=== PATIENT | female | born 1940 | race Caucasian/White ===

== ENCOUNTER → 2018-07-04 | Outpatient (CLI) | payer MEDICARE ==
[~2018-07-04] MED LIST: CITA10TA PO; TRAM-21 PO
--- NOTE | 2018-07-04 12:43 | Diagnostic Imaging Report ---
EXAMINATION: Lumbar spine. INDICATION: Back pain. TECHNIQUE: Three views were obtained. FINDINGS: There are no prior lumbar spine examinations available for comparison. The lateral view does show a 40-50% compression deformity of the superior endplate of L1. In reviewing the CT chest exam performed on 05/21/2015 I do feel that this finding was present. Consequently this injury is felt to be long-standing in nature. The lateral view also shows a mild (10%or less) compression deformity of the superior endplate of L5. This finding was not clearly evident on the previous CT of the abdomen/pelvis exam of 04/25/2012. I suspect that this injury may well be long-standing in nature. However, clinical concern regarding an acute or subacute abnormality in this area persists, then MRI would be recommended for additional study. The other vertebral body heights are within normal limits. The intervertebral spaces are fairly well-maintained. There is no acute fracture identified. There is no sign of a paraspinal mass. There is mild symmetrical sclerosis of the sacroiliac joints. IMPRESSION: 1. There is no acute bony abnormality identified with certainty. The mild compression fracture of L5 is of indeterminate age, although probably chronic in nature. Additional considerations as above. 2. The compression fracture of L1 appears to be long-standing in nature. Dictated by: Dictated on workstation # [id number]
== END ==
LOC: RAD 10:47
PROVIDERS: ATTEND Nurse Practitioner Family
DX: S32.010A Wedge compression fracture of first lumbar vertebra, initial encounter for closed fracture (principal); S32.050A Wedge compression fracture of fifth lumbar vertebra, initial encounter for closed fracture; M53.3 Sacrococcygeal disorders, not elsewhere classified
CPT/HCPCS: 72100

== ENCOUNTER → 2018-10-29 | Outpatient (CLI) | payer MEDICARE ==
--- NOTE | 2018-10-29 15:19 | Diagnostic Imaging Report ---
INDICATION: Neck pain. TIME OF EXAM: 12:48 p.m. FINDINGS: Three views of the cervical spine were obtained. Odontoid appears intact. Curvature is normal. There is minimal retrolisthesis of C3 on C4. There is marked demineralization throughout the cervical spine. Multilevel degenerative disc disease is seen with variable disc space narrowing and marginal spurring. Prevertebral tissues are normal. No fractures are seen. Calcifications in the left neck on the frontal view are likely from the carotid artery. IMPRESSION: Cervical spondylosis. No acute bony abnormality is detected. Dictated by: Dictated on workstation # [id number]
--- NOTE | 2018-10-29 18:53 | Diagnostic Imaging Report ---
INDICATION: Routine screening. Comparison is made with prior mammogram from 06/02/2015 and 05/19/2014. 2-D and 3-D unilateral left screening mammography was performed with CAD. Current study was also evaluated with a Computer Aided Detection (CAD) system. The left breast is heterogeneously dense, limiting the sensitivity of mammography. Left breast benign calcifications are again noted. There is a focal density in the mid left breast at the nipple line on MLO view. No correlate on the CC view is seen. Additional views are recommended. No other abnormality is seen. No suspicious calcifications are seen. Left axilla is unremarkable. IMPRESSION: Left breast density. Additional views including spot compression MLO and 90 degree lateral views are recommended for further evaluation. ACR BI-RADS Category 0: Incomplete. (Need additional imaging evaluation). Result letter will be mailed to the patient. Note: At least 10% of breast cancer is not imaged by mammography. Dictated by: Dictated on workstation # [id number]
== END ==
LOC: RAD 12:23
PROVIDERS: ATTEND Nurse Practitioner Family
DX: Z12.31 Encounter for screening mammogram for malignant neoplasm of breast (principal); R92.8 Other abnormal and inconclusive findings on diagnostic imaging of breast; M47.812 Spondylosis without myelopathy or radiculopathy, cervical region
CPT/HCPCS: 72040

== ENCOUNTER → 2018-11-01 | Outpatient (CLI) | payer MEDICARE ==
--- NOTE | 2018-11-01 13:17 | Diagnostic Imaging Report ---
INDICATION: Left breast density. Patient presents for additional views. CORRELATION is made with prior mammogram of 10/29/2018. Unilateral left 2-D and 3-D diagnostic mammography was performed including spot compression MLO and conventional 90 degree lateral views. Density noted in the central posterior left breast on prior imaging is no longer visualized. This most likely represented superimposed tissue. No mass or suspicious calcifications are seen. IMPRESSION: BI-RADS category 1. Additional views fail to demonstrate a discrete mass. The patient may return to routine annual screening mammography Dictated by: Dictated on workstation # [id number]
== END ==
LOC: RAD 12:55
PROVIDERS: ATTEND Nurse Practitioner Family
DX: R92.2 Inconclusive mammogram (principal)
CPT/HCPCS: 76641

== ENCOUNTER 2019-05-15 10:57 | Outpatient (RCR) | payer MEDICARE | END 2019-05-15 11:54 | disposition home or self-care (01) | PROVIDERS: ATTEND Nurse Practitioner Family | DX: M54.5 Low back pain (principal); Z87.81 Personal history of (healed) traumatic fracture; Z72.0 Tobacco use ==

== ENCOUNTER → 2019-11-28 | Outpatient (CLI) | payer MEDICARE ==
[~2019-11-28] MED LIST changes: +CATHETER FLUSH 10 ML SYR IV PRN; +HOLD METFORMIN - RECEIVED CONTRAST 20 ML VIAL IV SCH; +IOHEXOL 350 MG/ML 100 ML (OMNIPAQUE 350) VIAL IV ONE; +NS 100 ML (IVPB) BAG IV ONE
--- NOTE | 2019-11-28 10:59 | Diagnostic Imaging Report ---
CT CHEST W WO TECHNIQUE: Multiple contiguous axial images were obtained through the chest without and with the use of intravenous contrast. All CT scans use one or more of the following dose optimizing techniques: automated exposure control, MA and/or KvP adjustment based on a patient size and exam type, or iterative reconstruction. INDICATION: Pulmonary nodule follow-up. COMPARISON: CT chest of 05/21/2015 FINDINGS: Lungs and airway: No endoluminal nodule within the trachea. In the right upper lobe at the site of previous groundglass nodule, there is now irregular spiculated nodule measuring 1.3 cm which has an associated pleural tag. There are a few groundglass nodules within the bilateral lung apices measuring approximately 1 to 1.5 cm. A solid nodule has developed within the left upper lobe measuring 1.4 x 1.3 cm. Pleura: No pleural effusion or pneumothorax. Heart and mediastinum: No supraclavicular or axillary lymphadenopathy. No mediastinal, discrete hilar or juxtaphrenic lymphadenopathy. Heart is normal in size without pericardial effusion. Coronary artery calcifications are unchanged. Normal caliber thoracic aorta. Upper abdomen: Stable cysts within the left hepatic lobe that require no dedicated follow-up. Atherosclerotic aorta. Small sliding-type hiatal hernia is stable. Musculoskeletal: Chronic superior endplate compression at L1. No concerning focal osseous lesions. IMPRESSION: 1. New left upper lobe solid 1.4 cm pulmonary nodule is highly concerning for primary lung cancer or metastases from contralateral lung cancer. PET/CT is advised for further assessment. 2. Right upper lobe groundglass nodule has turned into a spiculated nodule with pleural tag suspicious for an additional site of lung cancer. Due to the incomplete solid nature, this lesion may not be hypermetabolic on PET/CT. 3. No intrathoracic lymphadenopathy or features of skeletal metastases in the chest. Dictated by: Dictated on workstation # [id number]
== END ==
LOC: RAD 08:16
PROVIDERS: ATTEND Family Medicine
DX: J44.9 Chronic obstructive pulmonary disease, unspecified (principal); R91.8 Other nonspecific abnormal finding of lung field
CPT/HCPCS: 71270

== ENCOUNTER → 2019-12-09 | Outpatient (CLI) | payer MEDICARE ==
[~2019-12-09] MED LIST changes: -CATHETER FLUSH 10 ML SYR IV PRN; -HOLD METFORMIN - RECEIVED CONTRAST 20 ML VIAL IV SCH; -IOHEXOL 350 MG/ML 100 ML (OMNIPAQUE 350) VIAL IV ONE; -NS 100 ML (IVPB) BAG IV ONE
--- NOTE | 2019-12-09 13:22 | Diagnostic Imaging Report ---
INDICATION: Right upper lobe and left upper lobe lung mass. TECHNIQUE: Serum blood glucose level at the time of injection is 130 mg/dL. Patient was administered 14.9 mCi F-18 FDG intravenously in the left antecubital location and PET imaging was performed from the top of the skull to mid thighs. Noncontrast CT was also performed for attenuation correction and anatomic correlation. COMPARISON: No prior PET/CT study is available for comparison. Comparison is made with recent CT chest study from 11/28/2019. FINDINGS: There is symmetric activity throughout the brain. Soft tissues of the neck are unremarkable. Previously noted density in the right upper lobe with pleural tag does not show metabolic activity. The left upper lobe lobulated mass does appear to be hypermetabolic with SUV max of approximately 5. No mediastinal or hilar hypermetabolism is seen. The abdomen and pelvis demonstrate physiologic activity throughout the GI and tracts. No suspicious hypermetabolic focus is detected. Conventional CT images demonstrate hepatic cysts. There is diverticulosis of the sigmoid but no acute diverticulitis. IMPRESSION: 1. The lobulated nodule in the left upper lobe noted on recent CT is hypermetabolic and suspicious for small lung neoplasm. No mediastinal or hilar hypermetabolism is identified. The irregular density in the right upper lobe with pleural tag does not appear to be hypermetabolic but continued follow-up would be recommended of this lesion. Dictated by: Dictated on workstation # [id number]
== END ==
LOC: RAD 08:15
PROVIDERS: ATTEND Family Medicine
DX: J98.4 Other disorders of lung (principal); R91.1 Solitary pulmonary nodule; R91.8 Other nonspecific abnormal finding of lung field

== ENCOUNTER 2019-12-22 09:01 | Outpatient (CLI) | payer MEDICARE ==
[~2019-12-22] VITALS: Ht 160 cm; Wt 59.3 kg
[2019-12-22] VITALS (15 sets, daily range): BP systolic 122–159; BP diastolic 45–61
--- NOTE | 2019-12-22 09:06 | NUR ---
PT HAS HX OF RIGHT MASTECTOMY WITH LYMPH NODE DISSECTION. PINK LIMB ALERT BAND APPLIED TO RIGHT ARM.
[2019-12-22] MEDS ORDERED: NS IV 1000 ML 1,000 ML IV STA (09:37)
[2019-12-22 09:42] LABS: HEMOGLOBIN 13.9 G/DL (11.5-16.0); MEAN PLATELET VOLUME 9.7 FL (7.4-10.4); RED CELL DISTRIBUTION WIDTH 14.9 % (10.0-14.5); WHITE BLOOD COUNT 8.6 10^3/uL (4.3-11.0)
[2019-12-22] MEDS ORDERED: LIDOCAINE 1% INJ 20 ML 20 ML VIAL INJ ONE (09:45)
[2019-12-22] MEDS ORDERED: MIDAZOLAM 2 MG/2 ML (VERSED) VIAL IVP ONE (09:45)
[2019-12-22] MEDS ORDERED: fentaNYL INJECTION 100 MCG/2 ML AMP IVP ONE (09:45)
[2019-12-22] MEDS ORDERED: MAGN250T13 PO (09:50)
[2019-12-22] MEDS ORDERED: LIDOCAINE 1% INJ 20 ML 20 ML VIAL ONE (09:50)
[2019-12-22] MEDS ORDERED: POTA10CA43 PO (09:50)
[2019-12-22] MEDS ORDERED: MIDAZOLAM 2 MG/2 ML (VERSED) VIAL ONE (09:50)
[2019-12-22] MEDS ORDERED: NS IV 1000 ML 1,000 ML ONE (09:50)
[2019-12-22] MEDS ORDERED: IBUP1TAB9 PO (09:50)
[2019-12-22] MEDS ORDERED: HYDR25TA4 PO (09:50)
[2019-12-22] MEDS ORDERED: fentaNYL INJECTION 100 MCG/2 ML AMP ONE (09:50)
[2019-12-22 09:55] LABS: INR 0.9 (0.8-1.4); PROTHROMBIN TIME PATIENT 12.8 SEC (12.2-14.7)
--- NOTE | 2019-12-22 11:00 | NUR ---
TO AMB SURG FROM RADIOLOGY PER CART. ALERT, REPORTS LEFT CHEST DISCOMFORT 1, RESPIRATIONS EVEN, UNLABORED WITH SAO2 98% ON ROOM AIR. GAUZE/OPSITE DSG D/I TO LEFT CHEST PROCEDURE SITE. PO FLUIDS PROVIDED.
[2019-12-22] MEDS ORDERED: HYDROcodone/APAP 5 MG/325 MG (LORTAB) TAB PO PRN (11:15)
--- NOTE | 2019-12-22 11:19 | Pre-Op Note & Conscious Sedat ---
Pre-Operative Progress Note H&P Reviewed The H&P was reviewed, patient examined and no changes noted. Date H&P Reviewed: Dec 22, 2019 Time H&P Reviewed: 09:00 Pre-Op Diagnosis: Lung mass Conscious Sedation Pre-Proced Time 09:00 ASA Score 2 For ASA 3 and 4: Consider anesthesia and medical clearance. Also, for patients with a history of failed moderate sedation consider anesthesia. Airway Lungs Heart ASA score ASA 1: a normal healthy patient ASA 2: a patient with a mild systemic disease (mid diabetes, controlled hypertension, obesity ASA 3: a patient with a severe systemic disease that limits activity (angina, COPD, prior Myocardial infarction) ASA 4: a patient with an incapacitating disease that is a constant threat to life (CHF, renal failure) ASA 5: a moribund patient not expected to survive 24 hrs. (ruptured aneurysm) ASA 6: a declared brain- patient whose organs are being harvested. For emergent operations, add the letter E after the classification Mallampati Classification Grade 2 Sedation Plan Analgesia, Amnesia, Plan communicated to team members, Discussed options with patient/fam, Discussed risks with patient/fam The patient is an appropriate candidate to undergo the planned procedure, sedation, and anesthesia. The patient immediately re-assessed prior to indication. MAG JACOB MD Dec 22, 2019 11:19
--- NOTE | 2019-12-22 11:29 | Diagnostic Imaging Report ---
INDICATION: Left lung mass. Patient presents for CT-guided biopsy. TECHNIQUE: All CT scans use one or more of the following dose optimizing techniques: automated exposure control, MA and/or KvP adjustment based on a patient size and exam type, or iterative reconstruction. FINDINGS: After informed written consent was obtained, patient was brought to CT suite, placed on table in the supine position. Axial imaging through the chest was performed to evaluate appropriate entry site. Left lower anterior chest was then prepped and draped in usual sterile fashion. Procedure was performed utilizing conscious sedation with radiology nursing and constant patient monitoring. Patient was given a total of 25 mcg of fentanyl intravenously. Procedure time was 13 minutes. 20-gauge coaxial Temno needle was advanced and placed with its tip along the margin of the nodule in the left upper lobe. Three core biopsies were obtained. Next, the needle was repositioned and additional two to three core biopsies were obtained. Needle was withdrawn during administration of a blood patch. Follow-up imaging shows a small amount of airspace infiltrate adjacent to the lesion, likely representing a small amount of hemorrhage. There is a very small left basilar pneumothorax. Patient tolerated the procedure well and left the department in stable condition. IMPRESSION: CT-guided core biopsy of left upper lobe nodule, utilizing conscious sedation. Pathology results are currently pending. Dictated by: Dictated on workstation # [id number]
--- NOTE | 2019-12-22 12:41 | Diagnostic Imaging Report ---
INDICATION: Left lung biopsy. TIME OF EXAM: 12:32 PM Correlation is made with prior chest from 04/04/2019. Left basilar nodular density is noted consistent with the recently biopsied lesion. No pneumothorax is identified status post biopsy. No effusion or hemothorax. IMPRESSION: No evidence of pneumothorax, status post left lung nodule biopsy. Dictated by: Dictated on workstation # [id number]
--- NOTE | 2019-12-22 13:00 | NUR ---
RECEIVED CALL FROM DAVE MAHAJAN RN, STATING POST PROCEDURE X-RAY SHOWS NO PNUEMOTHORAX OR EFFUSION. OK TO BE DISMISSED. HAS BEEN UP TO BR WITH ASSIST, GAIT STEADY, DENIES COMPLAINTS. STATES SHE IS READY FOR DISMISSAL.
== END 2019-12-22 13:00 | disposition home or self-care (01) ==
LOC: SDC 09:01
PROVIDERS: ATTEND Family Medicine
DX: C34.12 Malignant neoplasm of upper lobe, left bronchus or lung (principal)
CPT/HCPCS: 36415; 71045; 77012; 85027; 85610; 85730; 88305; 88341; 88342; 88344

== ENCOUNTER → 2020-04-01 | Outpatient (RCR) | payer MEDICARE ==
[~2020-04-01] MED LIST changes: +HYDR25TA4 PO; +IBUP1TAB9 PO; +MAGN250T13 PO; +POTA10CA43 PO
[2020-04-01 13:36] LABS: BASOPHILS % (AUTO) 0 % (0-10); EOSINOPHILS # (AUTO) 0.1 10^3/uL (0.0-0.3); EOSINOPHILS % (AUTO) 2 % (0-10); HEMATOCRIT 39 % (35-52); HEMOGLOBIN 12.9 G/DL (11.5-16.0); LYMPHOCYTES # (AUTO) 2.1 X 10^3 (1.0-4.0); LYMPHOCYTES % (AUTO) 34 % (12-44); MEAN CORPUSCULAR HEMOGLOBIN 30 PG (25-34); MEAN CORPUSCULAR HGB CONC 33 G/DL (32-36); MEAN CORPUSCULAR VOLUME 89 FL (80-99); MEAN PLATELET VOLUME 9.9 FL (7.4-10.4); MONOCYTES # (AUTO) 0.7 X 10^3 (0.0-1.0); MONOCYTES % (AUTO) 10 % (0-12); NEUTROPHILS # (AUTO) 3.4 X 10^3 (1.8-7.8); NEUTROPHILS % (AUTO) 54 % (42-75); PLATELET COUNT 189 10^3/uL (130-400); WHITE BLOOD COUNT 6.3 10^3/uL (4.3-11.0)
[2020-04-01 13:59] LABS: ALANINE AMINOTRANSFERASE 18 U/L (0-55); ALBUMIN 3.6 GM/DL (3.2-4.5); ALKALINE PHOSPHATASE 89 U/L (40-136); BILIRUBIN,TOTAL 0.4 MG/DL (0.1-1.0); BUN/CREATININE RATIO 23; CARBON DIOXIDE 26 MMOL/L (21-32); CHLORIDE 105 MMOL/L (98-107); CREATININE SERUM 0.75 MG/DL (0.60-1.30); GFR ESTIMATED > 60; GLUCOSE 86 MG/DL (70-105); POTASSIUM 3.5 MMOL/L (3.6-5.0); SODIUM 140 MMOL/L (135-145); TOTAL PROTEIN 6.7 GM/DL (6.4-8.2)
== END | disposition home or self-care (01) ==
LOC: ONC 01-02 08:27
PROVIDERS: ATTEND Internal Medicine Hematology & Oncology
DX: C34.12 Malignant neoplasm of upper lobe, left bronchus or lung (principal); Z85.3 Personal history of malignant neoplasm of breast; Z90.11 Acquired absence of right breast and nipple; K57.30 Diverticulosis of large intestine without perforation or abscess without bleeding; F17.210 Nicotine dependence, cigarettes, uncomplicated; I10 Essential (primary) hypertension; Z79.899 Other long term (current) drug therapy; Z80.3 Family history of malignant neoplasm of breast; Z80.1 Family history of malignant neoplasm of trachea, bronchus and lung; Z80.0 Family history of malignant neoplasm of digestive organs
CPT/HCPCS: 80053; 82378; 85025; 99204; 99213; 99214

== ENCOUNTER → 2020-06-02 | Outpatient (CLI) | payer MEDICARE ==
[2020-06-02 10:16] LABS: BUN/CREATININE RATIO 25; CREATININE SERUM 0.73 MG/DL (0.60-1.30); GFR ESTIMATED > 60
[2020-06-02 10:23] LABS: ALBUMIN 3.8 GM/DL (3.2-4.5)
[2020-06-02 10:24] LABS: CHLORIDE 108 MMOL/L (98-107); POTASSIUM 3.9 MMOL/L (3.6-5.0); SODIUM 144 MMOL/L (135-145)
[2020-06-02 10:26] LABS: GLUCOSE 107 MG/DL (70-105); TOTAL PROTEIN 6.7 GM/DL (6.4-8.2)
[2020-06-02 10:27] LABS: CARBON DIOXIDE 24 MMOL/L (21-32)
[2020-06-02 10:28] LABS: BILIRUBIN,TOTAL 0.7 MG/DL (0.1-1.0)
[2020-06-02 10:29] LABS: ALKALINE PHOSPHATASE 76 U/L (40-136)
[2020-06-02 10:32] LABS: ALANINE AMINOTRANSFERASE 14 U/L (0-55)
== END ==
LOC: LAB 09:11
PROVIDERS: ATTEND Nurse Practitioner Family
DX: E87.6 Hypokalemia (principal)
CPT/HCPCS: 36415; 80053

== ENCOUNTER → 2020-06-02 | Outpatient (CLI) | payer MEDICARE ==
[~2020-06-02] MED LIST changes: +CATHETER FLUSH 10 ML SYR IV PRN; +HOLD METFORMIN - RECEIVED CONTRAST 20 ML VIAL IV SCH; +IOHEXOL 350 MG/ML 100 ML (OMNIPAQUE 350) VIAL IV ONE; +NS 100 ML (IVPB) BAG IV ONE
[2020-06-02 10:00] LABS: CREATININE SERUM 0.73 MG/DL (0.60-1.30); GFR ESTIMATED > 60
[2020-06-02 10:01] LABS: BUN/CREATININE RATIO 25
--- NOTE | 2020-06-02 12:29 | Diagnostic Imaging Report ---
PROCEDURE: CT chest with contrast only. TECHNIQUE: Multiple contiguous axial images were obtained through the chest after administration of intravenous contrast. Auto Exposure Controls were utilized during the CT exam to meet ALARA standards for radiation dose reduction. INDICATION: Non-small cell lung carcinoma. COMPARISON: Prior CT chest from 11/28/2019. FINDINGS: No axillary lymphadenopathy is seen. There are multiple surgical clips in the right axilla. No mediastinal or hilar lymphadenopathy is seen. No pericardial or pleural fluid is detected. A spiculated density with a pleural tag in the right upper lobe is again noted measuring 12 mm compared with 14 mm on the prior. Groundglass opacity just lateral to this in the right upper lobe appears stable. There are some additional groundglass opacities in the medial right upper lobe and medial left upper lobe, similar to the prior exam. The solid, spiculated nodule in the left upper lobe measures 10 mm x 7 mm compared with 12 mm x 11 mm on the prior exam. Minimal groundglass density in the right lower lobe is stable. No new mass is seen. The upper abdomen again demonstrates multiple hepatic low-density lesions suggestive of cysts. No adrenal mass is identified. IMPRESSION: Overall slight decrease in size of the bilateral pulmonary opacities when compared with the examination from 11/28/2019. No thoracic lymphadenopathy is detected. Dictated by: Dictated on workstation # [id number]
== END ==
LOC: RAD 10:15
PROVIDERS: ATTEND Nurse Practitioner Family
DX: C34.12 Malignant neoplasm of upper lobe, left bronchus or lung (principal); R91.8 Other nonspecific abnormal finding of lung field
CPT/HCPCS: 71260; 82565; 84520

== ENCOUNTER → 2020-11-22 | Outpatient (CLI) | payer MEDICARE ==
[2020-11-22 09:49] LABS: GFR ESTIMATED > 60
[2020-11-22 09:50] LABS: BUN/CREATININE RATIO 21
--- NOTE | 2020-11-22 10:20 | Diagnostic Imaging Report ---
EXAMINATION: CT chest with intravenous contrast. TECHNIQUE: Multiple contiguous axial images were obtained through the chest after the uneventful administration of intravenous contrast. All CT scans use one or more of the following dose optimizing techniques: automated exposure control, MA and/or KvP adjustment based on patient size and exam type or iterative reconstruction. HISTORY: Lung cancer COMPARISON: 06/02/2020 FINDINGS: There is no edema or pneumonia. No pleural effusion. No pneumothorax. Lingular nodule measuring 7 x 5 mm previously measured 9 x 7 mm. The right upper lobe nodules are seen. The largest measures 10 x 7 mm, previously 12 x 9 mm. There is however a new 7 mm right upper lobe nodule anteriorly. There is been right axillary lymph node dissection. There is no mediastinal lymphadenopathy. Heart size is normal. There are mild coronary artery calcifications. No pericardial effusion. Aorta is normal in caliber. Limited views of the upper abdomen show fluid attenuation lesion in the left hemiliver, unchanged. There are no suspicious osseus lesions. L1 compression fracture is unchanged. IMPRESSION: 1. The majority of the pulmonary nodules have improved with one new 7 mm nodule in the right upper lobe anteriorly. Dictated by: Dictated on workstation # [id number]
== END ==
LOC: RAD 08:50
PROVIDERS: ATTEND Nurse Practitioner Family
DX: C34.12 Malignant neoplasm of upper lobe, left bronchus or lung (principal); R91.8 Other nonspecific abnormal finding of lung field
CPT/HCPCS: 36415; 71260; 82565; 84520

== ENCOUNTER 2020-12-02 14:52 | Outpatient (RCR) | payer MEDICARE ==
[2020-11-25 14:32] LABS: BASOPHILS % (AUTO) 1 % (0-10); EOSINOPHILS # (AUTO) 0.1 10^3/uL (0.0-0.3); EOSINOPHILS % (AUTO) 1 % (0-10); HEMATOCRIT 40 % (35-52); HEMOGLOBIN 13.2 g/dL (11.5-16.0); LYMPHOCYTES # (AUTO) 2.1 10^3/uL (1.0-4.0); LYMPHOCYTES % (AUTO) 30 % (12-44); MEAN CORPUSCULAR HEMOGLOBIN 30 pg (25-34); MEAN CORPUSCULAR HGB CONC 33 g/dL (32-36); MEAN CORPUSCULAR VOLUME 91 fL (80-99); MONOCYTES # (AUTO) 0.5 10^3/uL (0.0-1.0); MONOCYTES % (AUTO) 7 % (0-12); NEUTROPHILS # (AUTO) 4.3 10^3/uL (1.8-7.8); NEUTROPHILS % (AUTO) 62 % (42-75); PLATELET COUNT 198 10^3/uL (130-400)
[2020-11-25 14:53] LABS: ALANINE AMINOTRANSFERASE 13 U/L (0-55); ALBUMIN 3.5 GM/DL (3.2-4.5); ALKALINE PHOSPHATASE 83 U/L (40-136); BILIRUBIN,TOTAL 0.5 MG/DL (0.1-1.0); BUN/CREATININE RATIO 20; CALCIUM 8.8 MG/DL (8.5-10.1); CARBON DIOXIDE 29 MMOL/L (21-32); CHLORIDE 102 MMOL/L (98-107); GFR ESTIMATED > 60; GLUCOSE 166 MG/DL (70-105); POTASSIUM 3.2 MMOL/L (3.6-5.0); SODIUM 135 MMOL/L (135-145); TOTAL PROTEIN 6.4 GM/DL (6.4-8.2)
[~2020-12-02 14:52] MED LIST changes: -CATHETER FLUSH 10 ML SYR IV PRN; -HOLD METFORMIN - RECEIVED CONTRAST 20 ML VIAL IV SCH; -IOHEXOL 350 MG/ML 100 ML (OMNIPAQUE 350) VIAL IV ONE; -NS 100 ML (IVPB) BAG IV ONE
== END 2021-02-23 | disposition home or self-care (01) ==
LOC: ONC 14:52
PROVIDERS: ATTEND Internal Medicine Hematology & Oncology
DX: C34.12 Malignant neoplasm of upper lobe, left bronchus or lung (principal); I10 Essential (primary) hypertension; F17.210 Nicotine dependence, cigarettes, uncomplicated; Z92.3 Personal history of irradiation; Z90.11 Acquired absence of right breast and nipple; Z85.3 Personal history of malignant neoplasm of breast
CPT/HCPCS: 80053; 85025; G0463; 99213

== ENCOUNTER → 2021-03-09 | Outpatient (CLI) | payer MEDICARE ==
[~2021-03-09] MED LIST changes: +HOLD METFORMIN - RECEIVED CONTRAST 20 ML VIAL IV SCH
[2021-03-09] MEDS: CATHETER FLUSH 10 ML SYR IV PRN (09:48)
[2021-03-09] MEDS: NS 100 ML (IVPB) BAG IV ONE (09:48)
[2021-03-09] MEDS: IOHEXOL 350 MG/ML 100 ML (OMNIPAQUE 350) VIAL IV ONE (09:48)
--- NOTE | 2021-03-09 10:16 | Diagnostic Imaging Report ---
EXAMINATION: CT chest with intravenous contrast. TECHNIQUE: Multiple contiguous axial images were obtained through the chest after the uneventful administration of intravenous contrast. All CT scans use one or more of the following dose optimizing techniques: automated exposure control, MA and/or KvP adjustment based on patient size and exam type or iterative reconstruction. HISTORY: Lung cancer follow-up. COMPARISON: 11/22/2020 FINDINGS: Thyroid: The thyroid is normal. Mediastinum: Heart size is normal without significant pericardial effusion. Calcifications of the aorta and coronary vessels. Thoracic aorta is normal in caliber. No suspicious lymphadenopathy. Lungs and airways: There are background emphysematous changes of the lungs. There is scarring in the lung apices. Multiple pulmonary nodules are unchanged. The largest in the right upper lobe measures 1.4 x 0.9 cm. Stable 0.8 x 0.9 cm left upper lobe nodule. Patchy groundglass attenuation within the right lower lobe (series 3 image 100). More prominent appearance of a 0.4 cm right lower lobe subpleural pulmonary nodule (series 3 image 117). No pleural effusion or pneumothorax. The airways are normal. Upper abdomen: Stable left hepatic cyst. Stable 1.0 cm enhancing lesion within the pancreatic tail (series 2 image 151). There is a small hiatal hernia. Musculoskeletal: No suspicious osseous lesion or compression fracture. IMPRESSION: 1. Multiple bilateral pulmonary nodules overall are unchanged in size or appearance from 11/22/2020. A 0.4 cm right lower lobe subpleural pulmonary nodule is more prominent appearance on today's exam. 2. Stable 1.0 cm enhancing lesion within the pancreatic tail. Consider further evaluation with dedicated MRI protocol for evaluation of possible primary pancreatic lesion or metastasis. Dictated by: Dictated on workstation # [id number]
== END ==
LOC: RAD 09:14
PROVIDERS: ATTEND Internal Medicine Hematology & Oncology
DX: R91.8 Other nonspecific abnormal finding of lung field (principal); K86.89 Other specified diseases of pancreas; Z85.118 Personal history of other malignant neoplasm of bronchus and lung
CPT/HCPCS: 71260

== ENCOUNTER 2021-03-15 08:54 | Outpatient (RCR) | payer MEDICARE ==
[2021-03-09 09:02] LABS: BASOPHILS # (AUTO) 0.1 10^3/uL (0.0-0.1); BASOPHILS % (AUTO) 1 % (0-10); EOSINOPHILS # (AUTO) 0.1 10^3/uL (0.0-0.3); EOSINOPHILS % (AUTO) 2 % (0-10); HEMATOCRIT 42 % (35-52); HEMOGLOBIN 13.6 g/dL (11.5-16.0); LYMPHOCYTES # (AUTO) 2.1 10^3/uL (1.0-4.0); LYMPHOCYTES % (AUTO) 30 % (12-44); MEAN CORPUSCULAR HEMOGLOBIN 30 pg (25-34); MEAN CORPUSCULAR HGB CONC 33 g/dL (32-36); MEAN CORPUSCULAR VOLUME 91 fL (80-99); MEAN PLATELET VOLUME 9.4 fL (9.0-12.2); MONOCYTES # (AUTO) 0.7 10^3/uL (0.0-1.0); MONOCYTES % (AUTO) 10 % (0-12); NEUTROPHILS # (AUTO) 4.1 10^3/uL (1.8-7.8); NEUTROPHILS % (AUTO) 58 % (42-75); PLATELET COUNT 214 10^3/uL (130-400)
[2021-03-09 09:25] LABS: ALBUMIN 3.8 GM/DL (3.2-4.5); BILIRUBIN,TOTAL 0.7 MG/DL (0.1-1.0); CALCIUM 9.8 MG/DL (8.5-10.1); CREATININE SERUM 0.82 MG/DL (0.60-1.30); POTASSIUM 3.8 MMOL/L (3.6-5.0)
[~2021-03-15 08:54] MED LIST changes: -HOLD METFORMIN - RECEIVED CONTRAST 20 ML VIAL IV SCH
== END 2021-06-07 | disposition home or self-care (01) ==
LOC: ONC 08:54
PROVIDERS: ATTEND Internal Medicine Hematology & Oncology
DX: C34.12 Malignant neoplasm of upper lobe, left bronchus or lung (principal); I10 Essential (primary) hypertension; F17.210 Nicotine dependence, cigarettes, uncomplicated; Z92.3 Personal history of irradiation; Z90.11 Acquired absence of right breast and nipple; Z85.3 Personal history of malignant neoplasm of breast
CPT/HCPCS: 80053; 85025; 99213

== ENCOUNTER → 2021-06-03 | Outpatient (CLI) | payer MEDICARE ==
--- NOTE | 2021-06-03 14:01 | Diagnostic Imaging Report ---
CLINICAL INDICATIONS: Patient with low back pain. Patient went to urgent care for UTI. Patient has known compression fracture above her tailbone. EXAM: X-ray of the lumbar spine, 5 views. COMPARISON: X-ray of the lumbar spine dated 07/04/2018. FINDINGS: Stable chronic compression deformity of the upper endplate of the L5 vertebra. Stable anterior wedge compression fracture deformity of the L1 vertebra which is chronic. There are hypertrophic spurs involving the lumbar spine and lower lumbar spine facet arthropathy which is not significantly changed. There is multilevel loss of disk space height which is mild to moderate at the L5-S1 level and L3-L4 levels. There is no pars defect. Sacroiliac joints are unremarkable. There is osteopenia. IMPRESSION: 1.: There is degenerative disease lumbar spine with no acute fracture. 2: There are chronic fracture deformities involving the L1 and L5 vertebra. Dictated by: Dictated on workstation # [id number]
== END ==
LOC: RAD 12:49
PROVIDERS: ATTEND Physician Assistant
DX: M47.816 Spondylosis without myelopathy or radiculopathy, lumbar region (principal); M48.56XA Collapsed vertebra, not elsewhere classified, lumbar region, initial encounter for fracture
CPT/HCPCS: 72110

== ENCOUNTER → 2021-10-03 | Outpatient (CLI) | payer MEDICARE ==
[~2021-10-03] MED LIST changes: +CATHETER FLUSH 10 ML SYR IV PRN; +HOLD METFORMIN - RECEIVED CONTRAST 20 ML VIAL IV SCH; +IOHEXOL 350 MG/ML 100 ML (OMNIPAQUE 350) VIAL IV ONE; +NS 100 ML (IVPB) BAG IV ONE
[2021-10-03 08:07] LABS: CREATININE SERUM 0.79 MG/DL (0.60-1.30)
--- NOTE | 2021-10-03 09:04 | Diagnostic Imaging Report ---
EXAMINATION: CT chest with intravenous contrast. TECHNIQUE: Multiple contiguous axial images were obtained through the chest after the uneventful administration of intravenous contrast. All CT scans use one or more of the following dose optimizing techniques: automated exposure control, MA and/or KvP adjustment based on patient size and exam type or iterative reconstruction. HISTORY: MALIGNANT NEOPLASM OF LUNG COMPARISON: 03/09/2021 FINDINGS: Thyroid: The thyroid is normal. Mediastinum: Heart size is normal without significant pericardial effusion. Calcifications of the aorta and coronary vessels. Thoracic aorta is normal in caliber. No suspicious lymphadenopathy. Lungs and airways: There are stable bilateral pulmonary nodular densities. The largest within the right upper lobe measures 2.6 x 1.1 cm and demonstrates more atelectasis or consolidation associated with the nodule. Additional smaller nodules measuring less than a centimeter are unchanged. These are predominantly groundglass in appearance. Stable background emphysematous changes of lungs without consolidation, pleural effusion, or pneumothorax. The airways are normal. 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 Stable hepatic cysts. Small hiatal hernia is present. Stable subcentimeter lesion within the pancreatic tail. Musculoskeletal: Multilevel degenerative changes spine with chronic L1 compression fracture. No new suspicious osseous lesion. IMPRESSION: 1. Mildly increased consolidation or atelectasis associated with a right upper lobe pulmonary nodule measuring 2.6 x 1.1 cm. 2. Additional subcentimeter groundglass nodules are unchanged from 03/09/2021. 3. COPD. 4. Stable right renal and pancreatic tail lesions. Dictated by: Dictated on workstation # [id number]
== END ==
LOC: RAD 07:45
PROVIDERS: ATTEND Internal Medicine Hematology & Oncology
DX: J44.9 Chronic obstructive pulmonary disease, unspecified (principal); N28.9 Disorder of kidney and ureter, unspecified; K86.89 Other specified diseases of pancreas; C34.12 Malignant neoplasm of upper lobe, left bronchus or lung; R92.8 Other abnormal and inconclusive findings on diagnostic imaging of breast
CPT/HCPCS: 36415; 71260; 82565; 84520

== ENCOUNTER → 2021-10-07 | Outpatient (CLI) | payer MEDICARE ==
[~2021-10-07] MED LIST changes: -CATHETER FLUSH 10 ML SYR IV PRN; -HOLD METFORMIN - RECEIVED CONTRAST 20 ML VIAL IV SCH; -IOHEXOL 350 MG/ML 100 ML (OMNIPAQUE 350) VIAL IV ONE; -NS 100 ML (IVPB) BAG IV ONE
[2021-10-07 09:11] LABS: BASOPHILS # (AUTO) 0.1 10^3/uL (0.0-0.1); BASOPHILS % (AUTO) 1 % (0-10); EOSINOPHILS # (AUTO) 0.1 10^3/uL (0.0-0.3); EOSINOPHILS % (AUTO) 1 % (0-10); HEMATOCRIT 41 % (35-52); HEMOGLOBIN 13.4 g/dL (11.5-16.0); LYMPHOCYTES # (AUTO) 2.1 10^3/uL (1.0-4.0); LYMPHOCYTES % (AUTO) 29 % (12-44); MEAN CORPUSCULAR HEMOGLOBIN 30 pg (25-34); MEAN CORPUSCULAR HGB CONC 33 g/dL (32-36); MEAN CORPUSCULAR VOLUME 91 fL (80-99); MEAN PLATELET VOLUME 9.9 fL (9.0-12.2); MONOCYTES # (AUTO) 0.8 10^3/uL (0.0-1.0); MONOCYTES % (AUTO) 11 % (0-12); NEUTROPHILS # (AUTO) 4.4 10^3/uL (1.8-7.8); NEUTROPHILS % (AUTO) 59 % (42-75); PLATELET COUNT 209 10^3/uL (130-400); WHITE BLOOD COUNT 7.5 10^3/uL (4.3-11.0)
[2021-10-07 09:28] LABS: ALBUMIN 3.7 GM/DL (3.2-4.5); BILIRUBIN,TOTAL 0.5 MG/DL (0.1-1.0); CALCIUM 9.3 MG/DL (8.5-10.1); CREATININE SERUM 0.79 MG/DL (0.60-1.30); POTASSIUM 3.3 MMOL/L (3.6-5.0); TOTAL PROTEIN 6.7 GM/DL (6.4-8.2)
== END ==
LOC: EDSTATUS 06-08 10:25 → ONC 09:00
PROVIDERS: ATTEND Internal Medicine Hematology & Oncology
DX: C34.12 Malignant neoplasm of upper lobe, left bronchus or lung (principal); I10 Essential (primary) hypertension; C34.11 Malignant neoplasm of upper lobe, right bronchus or lung; Z92.3 Personal history of irradiation
CPT/HCPCS: 36415; 80053; 85025

== ENCOUNTER → 2021-10-24 | Outpatient (CLI) | payer MEDICARE ==
--- NOTE | 2021-10-24 16:39 | Diagnostic Imaging Report ---
INDICATION: Adenocarcinoma of the upper left lung. This study is performed for restaging. TECHNIQUE: The serum blood glucose level at the time of injection was 103 mg/dL. The patient was administered 13.2 mCi of F-18 FDG intravenously in the left antecubital location with PET imaging was performed from the top of skull to mid thighs. A noncontrast CT was also performed for attenuation correction and anatomic correlation. COMPARISON: Correlation is made with the prior PET/CT study from 12/09/2019. FINDINGS: There is symmetric activity throughout the brain. Physiologic activity within the soft tissues of the neck is identified. Imaging through the chest does show some uptake within the irregular density in the right lung apex; however, the activity is low level with an SUV max of 2.4. This area does appear to be slightly larger when compared with the prior measuring 2.3 x 1.0 cm compared with 2.3 x 0.5 cm. The hypermetabolic nodule noted previously in the left upper lobe has significantly decreased in size and is now barely visible measuring 9 mm x 5 mm compared with 14 mm x 13 mm. This does not appear to be hypermetabolic on today's exam; however, there does appear to be hypermetabolism in the left hilum with an SUV max of 4.4. This may represent a hypermetabolic lymph node. The right hilum is unremarkable. No other pulmonary parenchymal abnormalities are seen. Physiologic activity throughout the abdomen and pelvis is noted. No suspicious hypermetabolic foci are identified. IMPRESSION: Mixed results. The left upper lobe known lung neoplasm has significantly decreased in size and is no longer hypermetabolic. There has been some increase in size of an irregular parenchymal density in the right lung apex since the prior study. This area does show very low level metabolism. This could represent some increasing infiltrate although a neoplasm cannot be entirely excluded. There has also been development of a slightly hypermetabolic lymph node in the left hilum and a metastatic node cannot be excluded. Dictated by: Dictated on workstation # [id number]
== END ==
LOC: RAD 08:15
PROVIDERS: ATTEND Internal Medicine Hematology & Oncology
DX: C34.12 Malignant neoplasm of upper lobe, left bronchus or lung (principal)
CPT/HCPCS: 78815; A9552

== ENCOUNTER → 2021-10-26 | Outpatient (CLI) | payer MEDICARE | LOC: ONC 14:58 | PROVIDERS: ATTEND Internal Medicine Hematology & Oncology | DX: C34.12 Malignant neoplasm of upper lobe, left bronchus or lung (principal); C34.11 Malignant neoplasm of upper lobe, right bronchus or lung; I10 Essential (primary) hypertension; F17.210 Nicotine dependence, cigarettes, uncomplicated; Z92.3 Personal history of irradiation; Z85.3 Personal history of malignant neoplasm of breast; Z90.11 Acquired absence of right breast and nipple | CPT/HCPCS: 99213 ==

== ENCOUNTER → 2022-01-02 | Outpatient (CLI) | payer MEDICARE ==
[~2022-01-02] MED LIST changes: +GADOTERATE 0.5 MMOL/ML (CLARISCAN) 15 ML VIAL IV ONE
--- NOTE | 2022-01-02 12:03 | Diagnostic Imaging Report ---
CLINICAL INDICATION: Patient having spine pain. Patient with history of breast cancer in 1995 and lung cancer a few years ago. EXAM: MRI of the thoracic spine performed without and with 12 cc of Clariscan IV contrast. Sequences include sagittal T1, sagittal T2, sagittal T2 fat-sat, axial T2, axial T1, axial T1 post IV contrast, and sagittal T1 fat-sat post IV contrast. COMPARISON: CT scan of the chest with contrast dated 10/03/2021. FINDINGS: There is a roughly 60% compression fracture deformity involving the T7 vertebra with diffuse high T2 signal seen with sparing of the posterior elements. There is no significant retropulsed fracture component. There is a subtle compression deformity involving the upper aspect of the upper T3 vertebra of unknown age. There appears to be subtle possible increased T2 signal involving this vertebra versus artifact. There is no other definite acute fracture seen. There is a chronic anterior wedge compression fracture deformity involving the L1 vertebra. There is mild to moderate bony neuroforaminal narrowing involving the bilateral T7-T8 level and bilateral T8-T9 level. There is no significant central canal stenosis. There is an area of consolidation involving the posterior right upper lobe measuring grossly 1.2 cm x 2.3 cm. This area of consolidation previously measured 1.1 cm x 2.6 cm on the prior chest CT scan and was better seen on that exam. There are degenerative spurs and facet arthropathy. The thoracic spinal cord has normal cord caliber with no abnormal signal. IMPRESSION: 1: There is an acute/subacute fracture involving the T7 vertebra with no retropulsed component. There is no definite infiltrative process seen. 2: There is mild compression deformity involving the upper aspect of the T3 vertebra of unknown age. There is questionable increased T2 signal involving these vertebrae versus artifact. 3: There is a chronic L1 compression fracture deformity. Dictated by: Dictated on workstation # [id number]
--- NOTE | 2022-01-02 12:05 | Diagnostic Imaging Report ---
CLINICAL INDICATION: Patient with history of breast cancer in 1996 and lung cancer a few years ago. EXAM: MRI of the cervical spine performed without and with 12 cc of Clariscan IV gadolinium. Sequences include sagittal T2, sagittal T1, axial T2, axial T1, sagittal T1 fat-sat post IV contrast, and axial T1 fat sat post IV contrast. COMPARISON: X-ray cervical spine dated 10/29/2018. FINDINGS: There is significant motion artifact obscuring portions of the cervical spine and cervical spinal cord. There is no cervical spine infiltrative process seen. There is no abnormal IV contrast enhancement. There is no acute cervical spine fracture or dislocation. Limited visualization of the posterior fossa is unremarkable. There is no significant paraspinal soft tissue abnormality. C1-C2: There are small spurs involving the atlantoodontoid interval. There is no significant central canal stenosis. C2-C3: Unremarkable. C3-C4: There is a diffuse disk bulge and hypertrophic uncinate spurs with the left side worse than the right. There is severe left neuroforaminal narrowing and at least mild to moderate right neuroforaminal narrowing. There is moderate central canal stenosis. C4-C5: There is mild bilateral facet arthropathy. There is no significant central canal or neuroforaminal narrowing. C5-C6: There is diffuse disk bulge, moderate loss of disk space height, and small right-sided uncinate spurs. There is mild bilateral facet arthropathy. There is at least mild central canal narrowing and at least mild bilateral neuroforaminal narrowing. C6-C7: There is a diffuse disk bulge with moderate to severe loss of disk space height and bilateral uncinate spurs. There is at least mild central canal narrowing. There is at least mild bilateral neuroforaminal narrowing. C7-T1: There is bilateral facet arthropathy. There is no significant central canal or neuroforaminal narrowing. IMPRESSION: 1: There is no acute cervical spine fracture or dislocation. There is no infiltrative process seen. 2: There is multilevel cervical spine degenerative disease. Dictated by: Dictated on workstation # [id number]
== END ==
LOC: RAD 12-28 08:00
PROVIDERS: ATTEND Family Medicine
DX: M47.812 Spondylosis without myelopathy or radiculopathy, cervical region (principal); S22.069A Unspecified fracture of T7-T8 vertebra, initial encounter for closed fracture; M43.9 Deforming dorsopathy, unspecified; Z80.3 Family history of malignant neoplasm of breast; Z85.118 Personal history of other malignant neoplasm of bronchus and lung
CPT/HCPCS: 72156; 72157

== ENCOUNTER → 2022-01-23 | Outpatient (CLI) | payer MEDICARE ==
[~2022-01-23] MED LIST changes: -GADOTERATE 0.5 MMOL/ML (CLARISCAN) 15 ML VIAL IV ONE
--- NOTE | 2022-01-23 14:37 | Diagnostic Imaging Report ---
INDICATION: Lung carcinoma, restaging. TECHNIQUE: Serum blood glucose level at the time of injection was 150 mg/dL. Patient was administered 14.1 mCi F-18 FDG intravenously in the left antecubital location, and PET imaging was performed from the top of the skull to mid thighs. Noncontrast CT was also performed for attenuation correction and anatomic correlation. COMPARISON: Correlation is made with prior PET/CT study from 10/24/2021. FINDINGS: There is symmetric activity throughout the brain. Soft tissues of the neck are unremarkable. The irregular density in the right upper lobe previously described is stable to perhaps slightly less prominent when compared with prior exam. Overall measurements are approximately 21 mm x 7 mm compared with 23 mm x 10 mm. This again shows very low level activity with SUV of approximately 2.1. Tiny left upper lobe nodule is stable to perhaps even smaller when compared with prior exam measuring approximately 7 mm x 4 mm. No mediastinal hypermetabolism is seen. Previously noted hypermetabolic lymph node in the left hilum is barely visible on today's study. Abdomen and pelvis demonstrates physiologic activity in the gastrointestinal and genitourinary tracts. IMPRESSION: Continued stable to perhaps slightly improved PET/CT study when compared with exam from 10/24/2021. The irregular density in the right upper lobe appears slightly less prominent and shows low-level activity. Left hilar hypermetabolic node is barely visible on today's study. No new abnormality is detected. Dictated by: Dictated on workstation # [id number]
== END ==
LOC: RAD 09:32
PROVIDERS: ATTEND Internal Medicine Hematology & Oncology
DX: C34.11 Malignant neoplasm of upper lobe, right bronchus or lung (principal)
CPT/HCPCS: 78815; A9552

== ENCOUNTER → 2022-01-24 | Outpatient (CLI) | payer MEDICARE ==
--- NOTE | 2022-01-24 10:25 | Diagnostic Imaging Report ---
INDICATION: 81-year-old postmenopausal female. COMPARISON: None FINDINGS: AP Spine L1-L4: [BMD (g/cm2): 0.793] [T-Score: -3.4] [Z-Score: -1.6] [BMD Previous: na] [BMD % Change: na] LT Hip Neck: [BMD (g/cm2): 0.671] [T-Score: -2.6] [Z-Score: -0.6] LT Hip Total: [BMD (g/cm2):0.679] [T-Score:-2.6] [Z-Score: -0.7] [BMD Previous: na] [BMD % Change: na] RT Hip Neck: [BMD (g/cm2):0.691] [T-Score:-2.5] [Z-Score:-0.4] RT Hip Total: [BMD (g/cm2):0.665] [T-score:-2.7] [Z-Score:-0.8] [BMD Previous:na] [BMD % Change:na] World Health Organization criteria for BMD interpretation classify patients as Normal (T-score at or above -1.0), Osteopenic (T-score between -1.0 and -2.5) or Osteoporotic (T-score at or below -2.5). LIMITATIONS AND MODIFICATION: None. FRACTURE RISK (FRAX SCORE): The ten year probability of (%): Major Osteoporotic Fracture: [na] Hip Fracture: [na] IMPRESSION: 1. Osteoporosis. 2. Baseline examination. 3. See below National Osteoporosis Foundation guidelines on when to potentially initiate pharmacologic therapy. Based on the National Osteoporosis Foundation Guidelines, pharmacologic treatment should be initiated in any of the following, unless clinical conditions suggest otherwise: * Any patient with prior fragility fracture of the hip or vertebrae. A spine fracture indicates 5X risk for subsequent spine fracture and 2X risk for subsequent hip fracture. * Osteoporosis (T-score <-2.5). * Postmenopausal women and men age 50 and older with low bone mass/osteopenia (T-score between -1.0 and -2.5) by DXA and 10-year major osteoporotic fracture greater than 20% or a 10-year probability of hip fracture greater than 3%. These fracture risks are supplied above in the FRAX score, if applicable. * Clinician judgement and/or patient preferences may indicate treatment for people with 10-year fracture probabilities above or below these levels. Dictated by: Dictated on workstation # [id number]
== END ==
LOC: RAD 08:30
PROVIDERS: ATTEND Nurse Practitioner Family
DX: M80.08XA Age-related osteoporosis with current pathological fracture, vertebra(e), initial encounter for fracture (principal); Z78.0 Asymptomatic menopausal state
CPT/HCPCS: 77080

== ENCOUNTER → 2022-01-25 | Outpatient (CLI) | payer MEDICARE ==
[2022-01-25 09:27] LABS: BASOPHILS # (AUTO) 0.1 10^3/uL (0.0-0.1); BASOPHILS % (AUTO) 1 % (0-10); EOSINOPHILS # (AUTO) 0.2 10^3/uL (0.0-0.3); EOSINOPHILS % (AUTO) 2 % (0-10); HEMATOCRIT 39 % (35-52); HEMOGLOBIN 13.1 g/dL (11.5-16.0); LYMPHOCYTES % (AUTO) 27 % (12-44); MEAN CORPUSCULAR HEMOGLOBIN 30 pg (25-34); MEAN CORPUSCULAR HGB CONC 33 g/dL (32-36); MEAN CORPUSCULAR VOLUME 89 fL (80-99); MONOCYTES # (AUTO) 0.9 10^3/uL (0.0-1.0); MONOCYTES % (AUTO) 13 % (0-12); NEUTROPHILS # (AUTO) 4.3 10^3/uL (1.8-7.8); NEUTROPHILS % (AUTO) 58 % (42-75); PLATELET COUNT 226 10^3/uL (130-400); WHITE BLOOD COUNT 7.4 10^3/uL (4.3-11.0)
[2022-01-25 10:06] LABS: ALBUMIN 3.8 GM/DL (3.2-4.5); BILIRUBIN,TOTAL 0.5 MG/DL (0.1-1.0); CALCIUM 9.5 MG/DL (8.5-10.1); CREATININE SERUM 0.79 MG/DL (0.60-1.30); POTASSIUM 3.6 MMOL/L (3.6-5.0); TOTAL PROTEIN 6.9 GM/DL (6.4-8.2)
== END ==
LOC: ONC 09:02
PROVIDERS: ATTEND Internal Medicine Hematology & Oncology
DX: C34.12 Malignant neoplasm of upper lobe, left bronchus or lung (principal); C34.11 Malignant neoplasm of upper lobe, right bronchus or lung; Z85.3 Personal history of malignant neoplasm of breast; F17.200 Nicotine dependence, unspecified, uncomplicated
CPT/HCPCS: 36415; 80053; 85025

== ENCOUNTER → 2022-02-09 | Outpatient (CLI) | payer MEDICARE ==
[~2022-02-09] MED LIST changes: +DENOSUMAB 60 MG/1 ML (PROLIA) SQ SCH
[2022-02-09 10:05] VITALS: BP 147/73
[2022-02-09 10:15] VITALS: BP 120/70
== END ==
LOC: SDC 09:52
PROVIDERS: ATTEND Nurse Practitioner Family
DX: M81.0 Age-related osteoporosis without current pathological fracture (principal)
CPT/HCPCS: 96372

== ENCOUNTER → 2022-08-02 | Outpatient (CLI) | payer MEDICARE ==
[~2022-08-02] MED LIST changes: -DENOSUMAB 60 MG/1 ML (PROLIA) SQ SCH; -POTA10CA43 PO; +POTA10CA44 PO
[2022-08-02 10:27] LABS: HEMATOCRIT 40 % (35-52); MEAN CORPUSCULAR HEMOGLOBIN 30 pg (25-34); MEAN CORPUSCULAR HGB CONC 33 g/dL (32-36); MEAN CORPUSCULAR VOLUME 92 fL (80-99); MEAN PLATELET VOLUME 10.2 fL (9.0-12.2); PLATELET COUNT 237 10^3/uL (130-400); WHITE BLOOD COUNT 8.4 10^3/uL (4.3-11.0)
[2022-08-02 11:19] LABS: CREATININE SERUM 0.82 MG/DL (0.60-1.30); POTASSIUM 3.3 MMOL/L (3.6-5.0)
[2022-08-02 11:20] LABS: ALBUMIN 3.7 GM/DL (3.2-4.5); BILIRUBIN,TOTAL 0.7 MG/DL (0.1-1.0); CALCIUM 9.3 MG/DL (8.5-10.1); MAGNESIUM 1.9 MG/DL (1.6-2.4); TOTAL PROTEIN 6.9 GM/DL (6.4-8.2)
== END ==
LOC: LAB 10:10
PROVIDERS: ATTEND Family Medicine
DX: M81.0 Age-related osteoporosis without current pathological fracture (principal); J44.9 Chronic obstructive pulmonary disease, unspecified; M62.838 Other muscle spasm
CPT/HCPCS: 36415; 80053; 82306; 83735; 84443; 85027

== ENCOUNTER → 2022-08-02 | Outpatient (CLI) | payer MEDICARE ==
[2022-08-02 10:25] LABS: BASOPHILS # (AUTO) 0.1 10^3/uL (0.0-0.1); BASOPHILS % (AUTO) 1 % (0-10); EOSINOPHILS # (AUTO) 0.1 10^3/uL (0.0-0.3); EOSINOPHILS % (AUTO) 1 % (0-10); HEMATOCRIT 40 % (35-52); LYMPHOCYTES % (AUTO) 24 % (12-44); MEAN CORPUSCULAR HEMOGLOBIN 30 pg (25-34); MEAN CORPUSCULAR HGB CONC 33 g/dL (32-36); MEAN CORPUSCULAR VOLUME 92 fL (80-99); MEAN PLATELET VOLUME 10.2 fL (9.0-12.2); MONOCYTES # (AUTO) 0.8 10^3/uL (0.0-1.0); MONOCYTES % (AUTO) 10 % (0-12); NEUTROPHILS # (AUTO) 5.3 10^3/uL (1.8-7.8); NEUTROPHILS % (AUTO) 63 % (42-75); PLATELET COUNT 237 10^3/uL (130-400); WHITE BLOOD COUNT 8.4 10^3/uL (4.3-11.0)
[2022-08-02 10:53] LABS: ALBUMIN 3.7 GM/DL (3.2-4.5); BILIRUBIN,TOTAL 0.7 MG/DL (0.1-1.0); CALCIUM 9.3 MG/DL (8.5-10.1); CREATININE SERUM 0.82 MG/DL (0.60-1.30); POTASSIUM 3.3 MMOL/L (3.6-5.0); TOTAL PROTEIN 6.9 GM/DL (6.4-8.2)
== END ==
LOC: ONC 09:57
PROVIDERS: ATTEND Internal Medicine Hematology & Oncology
DX: C34.12 Malignant neoplasm of upper lobe, left bronchus or lung (principal); C34.11 Malignant neoplasm of upper lobe, right bronchus or lung; I10 Essential (primary) hypertension; F17.210 Nicotine dependence, cigarettes, uncomplicated; Z85.3 Personal history of malignant neoplasm of breast
CPT/HCPCS: 80053; 85025; G0463; 36415; 99213

== ENCOUNTER → 2022-08-04 | Outpatient (CLI) | payer MEDICARE ==
[2022-08-04 07:40] LABS: CHOLESTEROL 210 MG/DL (< 200); HDL CHOLESTEROL 55 MG/DL (40-60); TRIGLYCERIDES 123 MG/DL (<150); VLDL CHOLESTEROL 25 MG/DL (5-40)
== END ==
LOC: LAB 06:53
PROVIDERS: ATTEND Family Medicine
DX: M81.0 Age-related osteoporosis without current pathological fracture (principal); M62.838 Other muscle spasm; J44.9 Chronic obstructive pulmonary disease, unspecified
CPT/HCPCS: 36415; 80061

== ENCOUNTER 2022-08-16 10:10 | Outpatient (CLI) | payer MEDICARE ==
[2022-08-16 10:25] VITALS: BP 142/53
[2022-08-16] MEDS ORDERED: DENOSUMAB 60 MG/1 ML (PROLIA) SQ SCH (10:30)
== END 2022-08-16 10:45 | disposition home or self-care (01) ==
LOC: SDC 10:10
PROVIDERS: ATTEND Nurse Practitioner Family
DX: M81.0 Age-related osteoporosis without current pathological fracture (principal)
CPT/HCPCS: 96372

== ENCOUNTER → 2022-12-25 | Outpatient (CLI) | payer MEDICARE ==
[~2022-12-25] MED LIST changes: +HOLD METFORMIN - RECEIVED CONTRAST 20 ML VIAL IV SCH; +IOHEXOL 350 MG/ML 100 ML (OMNIPAQUE 350) VIAL IV ONE; +NS 100 ML (IVPB) BAG IV ONE
[2022-12-25 10:33] LABS: CREATININE SERUM 0.91 MG/DL (0.60-1.30)
--- NOTE | 2022-12-25 11:48 | Diagnostic Imaging Report ---
PROCEDURE: CT chest, abdomen, and pelvis with contrast. TECHNIQUE: Multiple contiguous axial images were obtained through the chest, abdomen, and pelvis after the administration of intravenous contrast. Auto Exposure Controls were utilized during the CT exam to meet ALARA standards for radiation dose reduction. INDICATION: Lung cancer. History of a mastectomy. Its compared with study 10/03/2021. CHEST: Spiculated mass in the right upper lobe at the apex posteriorly today 2.2 x 1.5 cm not significantly changed in size, density or morphology from the comparison. Adjacent sub-solid groundglass nodules in the right upper lobe also unchanged. Faint area of left upper lobe groundglass attenuation with no soft tissue component less than 1 cm unchanged. No new lung mass. No pathological thoracic lymph nodes. The atherosclerotic aorta patent and nonaneurysmal and nonacute. There is right mastectomy and right axillary dissection. No axillary mass, fluid collection or suspicious chest wall abnormality. Abdomen pelvis: A rim-enhancing and centrally cystic attenuating mass pancreatic tail today measures a diameter of 13 mm, previously 7 mm. Pancreatic duct nondilated. The remaining pancreatic parenchyma unremarkable. The adrenals are negative. There is simple cyst in the left hepatic lobe. No solid enhancing or suspect liver lesion. The bile ducts nondilated. The gallbladder unremarkable. The spleen negative. 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 There is no abdominal, pelvic, mesenteric or retroperitoneal adenopathy. There is noninflamed sigmoid diverticulosis. Some mild colorectal constipation without evelia impaction or obstruction. The small bowel was normal. The uterus, adnexa and urinary bladder nonacute. Patient has severe aortoiliac and mesenteric atherosclerotic vascular disease chronic without features suggestive of acute end organ ischemia. There is no suspicious lytic or sclerotic bony lesion. IMPRESSION: CHEST: Stable spiculated mass right upper lobe with additional right greater than left upper lobe sub-solid groundglass nodules. No adenopathy or change. ABDOMEN PELVIS: Centrally cystic and peripherally enhancing mass. Pancreatic tail measures larger than on prior. No new pancreatic lesion. No lymphadenopathy. Benign fat-containing right renal mild angiomyolipoma and stable benign hepatic cysts with noninflamed diverticulosis and colorectal constipation nonobstructive. Dictated by: Dictated on workstation # [id number]
== END ==
LOC: RAD 10:07
PROVIDERS: ATTEND Internal Medicine Hematology & Oncology
DX: R91.8 Other nonspecific abnormal finding of lung field (principal); C34.90 Malignant neoplasm of unspecified part of unspecified bronchus or lung
CPT/HCPCS: 36415; 71260; 74177; 82565; 84520

== ENCOUNTER → 2023-02-12 | Outpatient (CLI) | payer MEDICARE ==
[~2023-02-12] MED LIST changes: -HOLD METFORMIN - RECEIVED CONTRAST 20 ML VIAL IV SCH; -IOHEXOL 350 MG/ML 100 ML (OMNIPAQUE 350) VIAL IV ONE; -NS 100 ML (IVPB) BAG IV ONE; -POTA10CA44 PO; +POTA10CA84 PO
[2023-02-12 09:54] LABS: BASOPHILS # (AUTO) 0.1 10^3/uL (0.0-0.1); BASOPHILS % (AUTO) 1 % (0-10); EOSINOPHILS # (AUTO) 0.2 10^3/uL (0.0-0.3); EOSINOPHILS % (AUTO) 2 % (0-10); HEMATOCRIT 39 % (35-52); HEMOGLOBIN 13.2 g/dL (11.5-16.0); LYMPHOCYTES # (AUTO) 2.2 10^3/uL (1.0-4.0); LYMPHOCYTES % (AUTO) 25 % (12-44); MEAN CORPUSCULAR HEMOGLOBIN 30 pg (25-34); MEAN CORPUSCULAR HGB CONC 34 g/dL (32-36); MEAN CORPUSCULAR VOLUME 89 fL (80-99); MEAN PLATELET VOLUME 10.5 fL (9.0-12.2); MONOCYTES # (AUTO) 0.8 10^3/uL (0.0-1.0); MONOCYTES % (AUTO) 9 % (0-12); NEUTROPHILS # (AUTO) 5.5 10^3/uL (1.8-7.8); NEUTROPHILS % (AUTO) 63 % (42-75); PLATELET COUNT 228 10^3/uL (130-400); WHITE BLOOD COUNT 8.7 10^3/uL (4.3-11.0)
[2023-02-12 10:11] LABS: ALBUMIN 3.8 GM/DL (3.2-4.5); BILIRUBIN,TOTAL 0.6 MG/DL (0.1-1.0); CALCIUM 9.5 MG/DL (8.5-10.1); CREATININE SERUM 0.89 MG/DL (0.60-1.30); POTASSIUM 3.4 MMOL/L (3.6-5.0); TOTAL PROTEIN 6.6 GM/DL (6.4-8.2)
== END ==
LOC: ONC 09:37
PROVIDERS: ATTEND Internal Medicine Hematology & Oncology
DX: C34.12 Malignant neoplasm of upper lobe, left bronchus or lung (principal); C34.11 Malignant neoplasm of upper lobe, right bronchus or lung; I10 Essential (primary) hypertension; Z90.11 Acquired absence of right breast and nipple; Z85.3 Personal history of malignant neoplasm of breast
CPT/HCPCS: 36415; 80053; 85025

== ENCOUNTER → 2023-02-19 | Outpatient (CLI) | payer MEDICARE ==
[~2023-02-19] MED LIST changes: +CATHETER FLUSH 10 ML SYR IVP PRN
--- NOTE | 2023-02-19 15:13 | Diagnostic Imaging Report ---
INDICATION: Subsequent staging malignant neoplasm of the left upper lobe. Serum blood glucose level at the time of injection is 135 mg/dL. Patient was administered 9.0 mCi F-18 FDG intravenously in the left antecubital location and PET imaging was performed from the top of the skull to mid thighs. Noncontrast CT was performed for attenuation correction and anatomic correlation. Correlation is made with prior PET/CT study from 01/23/[address] of the chest, abdomen and pelvis performed 12/25/2022. There is symmetric activity throughout the brain. Soft tissues of the neck are unremarkable. A right upper lobe mass is again noted with an SUV max of 3.9. There is a focus of mild uptake involving the medial aspect of the left breast with an SUV max of approximately 3.6. This is indeterminate. A focus in the left hilum demonstrates an SUV max of 5.1. Physiologic activity within the gastrointestinal and genitourinary tracts of the abdomen and pelvis is noted. The peripherally enhancing cystic mass in the tail of the pancreas described on recent CT does not show FDG avidity. No suspicious hypermetabolic foci in the abdomen or pelvis are identified. IMPRESSION: 1. There is hypermetabolic activity in the known right upper lobe lung mass which appears to be stable in size. There is some mild uptake in the left hilum which may be associated with a small lymph node. This is not well visualized on the noncontrast CT. There is also some indeterminate uptake in the medial aspect of the left breast. A diagnostic mammography may be useful for further evaluation with potential directed ultrasound of the medial left breast. This study is otherwise unremarkable. Dictated by: Dictated on workstation # [id number]
== END ==
LOC: RAD 07:19
PROVIDERS: ATTEND Internal Medicine Hematology & Oncology
DX: C34.12 Malignant neoplasm of upper lobe, left bronchus or lung (principal); C34.11 Malignant neoplasm of upper lobe, right bronchus or lung
CPT/HCPCS: 78815; 82947; A9552

== ENCOUNTER 2023-02-22 09:35 | Outpatient (RCR) | payer MEDICARE ==
[~2023-02-22 09:35] MED LIST changes: -CATHETER FLUSH 10 ML SYR IVP PRN
== END 2023-03-15 | disposition home or self-care (01) ==
LOC: ONC 09:35
PROVIDERS: ATTEND Internal Medicine Hematology & Oncology
DX: C34.11 Malignant neoplasm of upper lobe, right bronchus or lung (principal); F17.210 Nicotine dependence, cigarettes, uncomplicated
CPT/HCPCS: 99214

== ENCOUNTER → 2023-02-28 | Outpatient (CLI) | payer MEDICARE ==
--- NOTE | 2023-02-28 11:51 | Diagnostic Imaging Report ---
INDICATION: Abnormal recent PET CT study demonstrating uptake in the medial left breast. Study is performed for further evaluation. Comparison is made with prior mammogram from 10/29/2018. Unilateral left 2-D and 3-D diagnostic mammography was performed. This included conventional CC and MLO views as well as a 90 degree lateral views. Spot compression CC and MLO views were also performed. There is a questionable area of architectural distortion in the medial aspect of the left breast, best seen on the CC view. This appears to be at the nipple line on the MLO view and no discrete mass is seen. No malignant-appearing microcalcifications are identified. Benign calcifications upper outer left breast noted. Left axilla is unremarkable. IMPRESSION: Questional architectural distortion medial left breast. Further evaluation with ultrasound is recommended and will be performed today. ACR BI-RADS Category 0: Incomplete. (Needs additional imaging evaluation). Result letter will be mailed to the patient. Note: At least 10% of breast cancer is not imaged by mammography. BI-RADS 0 Dictated by: Dictated on workstation # [id number]
--- NOTE | 2023-02-28 12:07 | Diagnostic Imaging Report ---
INDICATION: Abnormal PET/CT study demonstrating uptake in the medial left breast. Diagnostic mammogram also shows some question of architectural distortion medial left breast. This study is performed for further evaluation. Correlation is made with the diagnostic mammogram earlier the same day as well as a PET/CT study from 02/19/2023. Sonographic interrogation medial left breast was performed. There are some ill-defined areas of hypoechogenicity which are indeterminate. No discrete mass is identified. No abnormal vascularity is identified. IMPRESSION: Ill-defined areas of hypoechogenicity at approximately 9 o'clock location, indeterminate. This could merely represent breast tissue. There is some questionable architectural distortion in the medial left breast noted on the diagnostic mammogram. Tissue sampling of the area of architectural distortion would be recommended. This would be amenable to stereotactic biopsy approach. ACR BI-RADS Category 4: Suspicious abnormality. Result letter will be mailed to the patient. Note: At least 10% of breast cancer is not imaged by mammography. BI-RADS Category 4 Dictated by: Dictated on workstation # [id number]
== END ==
LOC: RAD 07:59
PROVIDERS: ATTEND Internal Medicine Hematology & Oncology
DX: C34.12 Malignant neoplasm of upper lobe, left bronchus or lung (principal)
CPT/HCPCS: 76642; 77065; G0279

== ENCOUNTER 2023-03-02 10:55 | Outpatient (CLI) | payer MEDICARE ==
[2023-03-02 11:11] VITALS: BP 133/49
[2023-03-02] MEDS ORDERED: DENOSUMAB 60 MG/1 ML (PROLIA) SQ SCH (11:15)
== END 2023-03-02 11:25 | disposition home or self-care (01) ==
LOC: SDC 10:55
PROVIDERS: ATTEND Family Medicine
DX: M81.0 Age-related osteoporosis without current pathological fracture (principal)
CPT/HCPCS: 90471

== ENCOUNTER → 2023-03-07 | Outpatient (CLI) | payer MEDICARE ==
[~2023-03-07] VITALS: Ht 160 cm; Wt 65.9 kg
[~2023-03-07] MED LIST changes: +LIDOCAINE 1% INJ 10 ML VIAL INJ ONE; +LIDOCAINE 1% INJ 10 ML VIAL ONE
--- NOTE | 2023-03-07 13:41 | Diagnostic Imaging Report ---
INDICATION: Architectural distortion in the medial left breast. Patient presents for stereotactic biopsy. DETAILS OF THE PROCEDURE: The patient was brought to the stereotactic suite and placed in a chair in a sitting upright position. The left breast was positioned craniocaudal. The area of architectural distortion in the medial left breast was stereotactically targeted. All images were viewed on a dedicated workstation. The superior left breast was then prepped and draped in the usual sterile fashion. A small amount of 1% lidocaine was utilized for local anesthesia. An 8 gauge vacuum-assisted needle was advanced into the left breast from a craniocaudal approach and placed per stereotactic coordinates. A total of 4 core biopsies was obtained. A marker clip was then deployed. The needle was removed and hemostasis was obtained. A 2D post procedure CC and ML mammogram was performed to evaluate clip placement on a dedicated mammographic unit. Images demonstrate a marker clip in the medial left breast. The patient tolerated the procedure well and left the Department in stable condition. IMPRESSION: Successful stereotactic biopsy of the architectural distortion in the medial left breast utilizing a vacuum-assisted device. Pathology results are currently pending. Dictated by: Dictated on workstation # [id number]
== END ==
LOC: RAD 09:58
PROVIDERS: ATTEND Internal Medicine Hematology & Oncology
DX: R92.8 Other abnormal and inconclusive findings on diagnostic imaging of breast (principal); C34.12 Malignant neoplasm of upper lobe, left bronchus or lung
CPT/HCPCS: 19081; A4648 ×2

== ENCOUNTER 2023-04-19 06:13 | Inpatient (IN) | payer MEDICARE ==
[~2023-04-19] VITALS: Ht 158 cm; Wt 64.9 kg
[2023-04-19] VITALS (10 sets, daily range): BP systolic 106–142; BP diastolic 54–95
[2023-04-19] MEDS ORDERED: ceFAZolin INJECTION 2,000 MG in NS (IVPB) 50 ML 50 ML IV ONE (06:30)
--- NOTE | 2023-04-19 07:13 | Progress Note-Pre Operative ---
Pre-Operative Progress Note Date H&P Reviewed: Apr 19, 2023 Time H&P Reviewed: 07:13 History & Physical: H&P Reviewed, Patient Examed, No changes noted Pre-Operative Diagnosis: left breast cancer GIULIA TAI DO Apr 19, 2023 07:13
[2023-04-19] MEDS ORDERED: dexAMETHasone INJ 10 MG/ML 1 ML VIAL ONE (08:01)
[2023-04-19] MEDS ORDERED: fentaNYL INJECTION 100 MCG/2 ML VIAL ONE (08:01)
[2023-04-19] MEDS ORDERED: proPOfol INJECTION 200 MG/20 ML VIAL IV ONE (08:01)
[2023-04-19] MEDS ORDERED: ONDANSETRON INJECTION 4 MG/2 ML (SDV) ONE (08:01)
[2023-04-19] MEDS ORDERED: LIDOCAINE PF 2% 5 ML VIAL ONE (08:01)
[2023-04-19] MEDS: LACTATED RINGERS 1,000 ML 1,000 ML IV PRN ×2 (08:12→09:50)
[2023-04-19] MEDS ORDERED: LIDOCAINE/EPI 1%-1:200,000 (XYLOCAINE) 30 ML VIAL ONE (08:37)
[2023-04-19] MEDS ORDERED: LIDOCAINE/EPI 1%-1:200,000 (XYLOCAINE) 30 ML VIAL INJ ONE (09:56)
[2023-04-19] MEDS ORDERED: PHENYLEPHRINE 100 MCG/ML 10 ML (ANESTHESIA) SYR ONE (10:21)
[2023-04-19] MEDS ORDERED: SEVOFLURANE (ULTANE) 15 ML INHAL SOLN ONE (10:23)
--- NOTE | 2023-04-19 10:39 | Progress Note-Post Operative ---
Post-Operative Progess Note Surgeon (s)/Manager Pipeline (s) Surgeon GIULIA TAI DO Manager Pipeline: Dr. Ramirez Pre-Operative Diagnosis left breast cancer Post-Operative Diagnosis same Procedure & Operative Findings Date of Procedure 04/19/23 Procedure Performed/Findings left modified mastectomy c sentinel lymph node biopsy Anesthesia Type gen Estimated Blood Loss Estimated blood loss (mL): minimal Specimens/Packing Specimens Removed left breast, lymph node GIULIA TAI DO Apr 19, 2023 10:39
[2023-04-19] MEDS ORDERED: ONDANSETRON INJECTION 4 MG/2 ML (SDV) IVP PRN (10:45)
[2023-04-19] MEDS ORDERED: morphine INJ 10 MG/ML 1ML (SYR OR VIAL) IVP ONE (10:45)
[2023-04-19] MEDS: ONDANSETRON INJECTION 4 MG/2 ML (SDV) IVP PRN ×2 (11:17→12:03)
[2023-04-19] MEDS: HYDROcodone/ACETAMINOPHEN 5 MG/325 MG TABLET PO PRN ×2 (12:04→16:38)
--- NOTE | 2023-04-19 12:47 | Anesthesia-General Post-Op ---
General Patient Condition Mental Status/LOC: Same as Preop Cardiovascular: Satisfactory Nausea/Vomiting: Absent Respiratory: Satisfactory Pain: Controlled Complications: Absent Post Op Complications Complications None Follow Up Care/Instructions Patient Instructions None needed. Anesthesia/Patient Condition Patient Condition Patient is doing well, no complaints, stable vital signs, no apparent adverse anesthesia problems. No complications reported per nursing. DAVID SOUZA CRNA Apr 19, 2023 12:47
[2023-04-19] MEDS: LACTATED RINGERS 1,000 ML BAG IV SCH ×2 (13:50→23:27)
--- NOTE | 2023-04-19 15:18 | Discharge Inst-Simple/Standard ---
Discharge Inst-Standard Discharge Medications New, Converted or Re-Newed RX: Transmitted to Pharmacy Patient Instructions/Follow Up Plan of Care/Instructions/FU: 2 weeks Milly Activity as Tolerated: No Discharge Diet: Regular Diet Other Inst to Patient Follow up Appt: Make appointment for 2 week. Instructions: No lifting greater than 10 pounds. No strenuous activity. May shower in 24 hours, no tub bath or soaking. Use incentive spirometer at home as directed. No Smoking Skin/Wound Care: You have special glue over your incision that will fall off on it's own. Keep supportive bandage on daily and in the evening. Symptoms to Report: Appetite Changes, Extremity Discoloration, Numbness/Tingling, Swelling Increased, Bleeding Excessive, Eyesight Changes, Pain Increased, Urine Color Change, Constipation(Persistent), Fever over 101 degree F, Pain/Pressure in chest, Urinating Difficulty, Cough Up/Vomit Blood, Heart Beat Irreg/Pounding, Pain/Pressure in jaw, Vaginal Bleeding Increase, Cramps in feet or legs, Lightheadedness, Pain/Pressure in shoulder, Diarrhea(Persistent), Memory Changes Suddenly, Questions/Concerns, Weight gain consecutive days, Dizziness/Fainting, Nausea/Vomiting, Shortness of Breath, Weight gain over 2 pounds If questions or concerns contact your physician Or seek help at emergency department. GIULIA TAI DO Apr 19, 2023 15:18
[2023-04-20] VITALS: BP 120/80
[2023-04-20 04:32] VITALS: BP 126/78
[2023-04-20 07:32] VITALS: BP 120/76
[2023-04-20] MEDS: LACTATED RINGERS 1,000 ML BAG IV SCH (09:30)
[2023-04-20 11:30] VITALS: BP 120/76
[2023-04-20 11:51] VITALS: BP 120/70
--- NOTE | 2023-04-21 06:17 | OPERATIVE REPORT ---
DATE OF SERVICE: 04/19/2023 PREOPERATIVE DIAGNOSIS: Left breast cancer. POSTOPERATIVE DIAGNOSIS: Left breast cancer. PROCEDURE: Left modified mastectomy with sentinel node biopsy. SURGEON: Giulia Atkins DO PUBLIC RELATIONS ANALYST: Jerry Ramirez DO., assisted in retraction, dissection, and closure. ANESTHESIA: General. ESTIMATED BLOOD LOSS: Minimal. COMPLICATIONS: None. INDICATIONS: The patient is an 82-year-old female who was diagnosed with left breast cancer. She understands risks and benefits of procedure, which she only wanted sentinel node biopsies performed along with mastectomy. She understands all risks and benefits and wished to proceed. Consent was signed in chart. DESCRIPTION OF PROCEDURE: The patient was taken to the operating suite. She was prepped and draped in sterile fashion. Timeout was performed. Local anesthetic was infiltrated around the incisions for an elliptical incision, removing the nipple areolar complex. A #10 blade scalpel was used to make incision. Cautery used to dissect down through the subcutaneous tissues and inferior and superior skin flap was then made using the fair amount of the medial border of the rectus abdominis to the inferior border of latissimus dorsi on the lateral margin and to the clavicle from the superior border. The pectoral fascia was then grasped medially and started to be elevate and removed from the pectoral major muscle and started dissecting around the medial and lateral fashion. Prior to the breast being removed, a [place] counter was then used to isolate the sentinel node along with prior to incision, methylene blue was injected around the nipple in four locations 1 mL. A small node was visualized that was not hot, but was removed and sent for pathology. Using the [place] counter, a hot node was found, which in-vivo was 6041. This was able to be removed without difficulty. Ex-vivo was [id number]. This lymph node was purple in color as well from the methylene blue. The [place] counter was then used to try to isolate any other nodes. Nothing was hit within 10 % of the numbers from the original node. The wound was irrigated. At this point, the breast was then taken off completely. The skin was then tagged with long suture lateral, short suture superiorly. The wound was then irrigated with copious amounts of [ ] sterile water. Hemostasis was achieved. A 19 Caio drain was placed through a stab incision inferiorly. This was wrapped around the space and also incorporating to the axilla. A 3-0 Vicryl was then used to the subcutaneous tissues. A 4-0 Monocryl was then used to close the skin. The chest was washed and dried and skin Affix was placed over the incisions. The drain was also sutured in place with 3-0 nylon. The patient tolerated the procedure well without any complications, taken to recovery room in stable condition. Job ID: [id number] DocumentID: [id number] Dictated Date: 04/20/2023 22:39:06 Rolled Ham Lacer Date: 04/21/2023 06:15:00 Dictated By: GIULIA ATKINS DO
== END 2023-04-20 12:36 | disposition home or self-care (01) | DRG 581 ==
LOC: 4TH 06:13 → SURG 06:14 → 4TH 11:36
PROVIDERS: ADMIT Surgery; ATTEND Surgery
PROC: 07B60ZX Excision of Left Axillary Lymphatic, Open Approach, Diagnostic (ICD-10-PCS; 2023-04-19)
PROC: 0HTU0ZZ Resection of Left Breast, Open Approach (ICD-10-PCS; principal; 2023-04-19 08:50)
DX: C50.912 Malignant neoplasm of unspecified site of left female breast (principal); Z85.3 Personal history of malignant neoplasm of breast; Z90.11 Acquired absence of right breast and nipple
CPT/HCPCS: 87081

== ENCOUNTER → 2023-04-19 | Outpatient (CLI) | payer MEDICARE ==
[~2023-04-19] MED LIST changes: +BUPR-168 PO; +CHOL20003 PO; +DENO60DI SQ; +FLUT1DIS26 IH; +HYDR-3820 PO; -LIDOCAINE 1% INJ 10 ML VIAL INJ ONE; -LIDOCAINE 1% INJ 10 ML VIAL ONE; +RT-ALBUINH INH; +TAMO20TA2 PO
--- NOTE | 2023-04-19 09:20 | Diagnostic Imaging Report ---
INDICATION: Left breast carcinoma. A total of 1.1 mCi of technetium 99m Lymphoseek was injected in 4 separate aliquots in the left periareolar distribution. Imaging over the breast was then performed. There does appear to be migration of activity into the left axilla. This was marked on the patient's skin. Patient tolerated procedure well and was sent to same day surgery in satisfactory condition. IMPRESSION: Left breast lymphoscintigraphy, as described. Dictated by: Dictated on workstation # [id number]
== END ==
LOC: CARD 08:00
PROVIDERS: ATTEND Surgery
DX: C50.912 Malignant neoplasm of unspecified site of left female breast (principal)
CPT/HCPCS: 78195; A9520

== ENCOUNTER 2023-05-04 08:49 | Outpatient (RCR) | payer MEDICARE | END 2023-05-15 | disposition home or self-care (01) | LOC: ONC 08:49 | PROVIDERS: ATTEND Internal Medicine Hematology & Oncology | DX: C34.11 Malignant neoplasm of upper lobe, right bronchus or lung (principal); C34.12 Malignant neoplasm of upper lobe, left bronchus or lung; C50.912 Malignant neoplasm of unspecified site of left female breast; I10 Essential (primary) hypertension | CPT/HCPCS: 99214 ==